=== PATIENT | male | born 1950 | race Caucasian/White ===

== ENCOUNTER → 2021-01-03 | Outpatient (CLI) | payer MEDICARE, OTHER | LOC: EXRD 10:16 | DX: K76.0 Fatty (change of) liver, not elsewhere classified (principal); K76.89 Other specified diseases of liver | CPT/HCPCS: 76700 ==

== ENCOUNTER → 2021-10-29 | Outpatient (CLI) | payer MEDICARE | LOC: ECHO 10:13 | DX: R94.31 Abnormal electrocardiogram [ECG] [EKG] (principal); I51.89 Other ill-defined heart diseases | CPT/HCPCS: ECHO; 93306 ==